=== PATIENT | male | born 1945 | race Caucasian/White ===

== ENCOUNTER 2018-09-09 09:53 | Emergency (ER) | payer OTHER ==
[~2018-09-09] VITALS: Ht 177.8 cm; Wt 154.2 kg
[~2018-09-09 09:53] MED LIST: ASPIRIN81 M2 PO; AUGMENTIN 875875 MG PO; BYSTOLIC20 MG PO; CIPROFLOXACIN500 M1 PO; FOLIC ACID 40400 MCG PO; HYDROCHLOROTHIA25 M2 PO; LEVAQUIN 500 M500 M2 PO; LEVOTHYROXINE0.2 M1 PO; MINOCIN100 MG; MINOCIN100 MG PO; MOBIC15 MG PO; PERCOCET 5-3251 EACH PO; TAMSULOSIN HCL0.4 MG PO; ZOCOR40 MG PO; ZOFRAN4 MG PO
[2018-09-09] MEDS ORDERED: CELEBREX 200 M200 M1 PO (10:05)
[2018-09-09] MEDS ORDERED: LOPRESSOR50 PO (10:07)
[2018-09-09] MEDS ORDERED: PREDNISONE 20 M20 M1 PO (10:18)
[2018-09-09] MEDS ORDERED: ZPAK PO (10:18)
[2018-09-09] MEDS ORDERED: VENTOLIN HFA 1818 GM INH (10:18)
[2018-09-09 10:22] VITALS: BP 155/61
== END 2018-09-09 10:25 | disposition home or self-care (01) ==
LOC: M.ERS 09:53
DX: J40 Bronchitis, not specified as acute or chronic (principal); I10 Essential (primary) hypertension; E78.00 Pure hypercholesterolemia, unspecified; E03.9 Hypothyroidism, unspecified; E66.9 Obesity, unspecified; Z68.42 Body mass index [BMI] 45.0-49.9, adult

== ENCOUNTER 2019-01-11 18:00 | Emergency (ER) | payer OTHER ==
[~2019-01-11] VITALS: Ht 177.8 cm; Wt 158.8 kg
[~2019-01-11 18:00] MED LIST changes: +CELEBREX 200 M200 M1 PO; +LOPRESSOR50 PO; +PREDNISONE 20 M20 M1 PO; +VENTOLIN HFA 1818 GM INH; +ZPAK PO
[2019-01-11] MEDS ORDERED: FOLGARD TABLET1 EAC1 PO (18:10)
[2019-01-11 18:33] LABS: ABSOLUTE EOSINOPHILS 0.2 thou/uL (0.0-0.7); ABSOLUTE LYMPHOCYTES 2.1 thou/uL (0.8-5.3); ABSOLUTE MONOCYTES 1.1 thou/uL (0.0-1.2); ABSOLUTE NEUTROPHILS 3.1 thou/uL (1.6-8.1); BASOPHILS 0.1 %; EOSINOPHILS 3.7 %; HEMATOCRIT 42.6 % (42.0-52.0); HEMOGLOBIN 14.5 gm/dL (14.0-18.0); LYMPHOCYTES 32.4 %; MCH 27.3 pg (26.0-34.0); MCHC 34.1 g/dL (28.0-37.0); MCV 80.2 fL (80.0-100.0); MPV 8.9 fl. (7.2-11.1); NUCLEATED RBCS 0 /100WBC; PLATELET COUNT* 154 thou/uL (150-400); POLYS 46.8 %; RBC 5.31 mil/uL (4.50-6.00); RDW-CV 13.5 % (10.5-14.5); WBC 6.5 thou/uL (4.0-11.0)
[2019-01-11 18:44] LABS: CALCIUM 9.9 mg/dL (8.5-10.1); CREATININE 1.4 mg/dL (0.6-1.3); POTASSIUM 3.5 mmol/L (3.5-5.1)
[2019-01-11 18:59] LABS: ALBUMIN 3.4 g/dL (3.4-5.0); TOTAL BILIRUBIN 0.7 mg/dL (<0.1-1.0); TOTAL PROTEIN 7.5 g/dL (6.4-8.2)
[2019-01-11] MEDS ORDERED: CLEOCIN HCL300 MG PO (20:02)
[2019-01-11 20:13] VITALS: BP 188/63
== END 2019-01-11 20:14 | disposition home or self-care (01) ==
LOC: M.ERS 18:00
PROVIDERS: Nurse Practitioner Family
DX: L03.116 Cellulitis of left lower limb (principal); I10 Essential (primary) hypertension; E78.00 Pure hypercholesterolemia, unspecified; E03.9 Hypothyroidism, unspecified; E66.9 Obesity, unspecified; Z68.43 Body mass index [BMI] 50.0-59.9, adult

== ENCOUNTER → 2021-09-05 | Outpatient (CLI) | payer OTHER ==
[~2021-09-05] MED LIST changes: +CLEOCIN HCL300 MG PO; +FOLGARD TABLET1 EAC1 PO
== END ==
LOC: M.RAD 11:34
PROVIDERS: ATTEND Internal Medicine
DX: J98.4 Other disorders of lung (principal)